=== PATIENT | female | born 1990 | race Caucasian/White ===

== ENCOUNTER 2019-12-23 16:55 | Inpatient (IN) ==
[2019-12-23] MEDS ORDERED: OXYTOCIN 30 UNITS/500 ML BAG IV PRN ×2 (17:24→17:26)
--- NOTE | 2019-12-23 17:31 | History & Physical Report ---
Date of Service December 23, 2019 Assessment & Plan (1) Spontaneous rupture of amniotic membranes: 29 yo at 39 wks with SROM at 1600, light meconium VSS Afebrile No medical problems GBS negative FHR reassuring Discussed the findings and recommended augmentation/ induction with IV pitocin which is associated with less risk of intraamniotic infection She understands and accepts, plan to have epidural for pain (2) Thin meconium stained amniotic fluid: History of Present Illness Chief Complaint: Leaking fluids Primary Care Provider: Zain García MD Patient is a 29 yo at 39 wks who felt a gush of fluid leaking at 1600, has been trickling since then Yellow tinged, no blood No ctxs/ abd pain/ fever/ chills/ N&V +FM's Her has been uncomplicated GBS negative Patient History DISCHARGE COORDINATOR History No 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 STD's Review of Systems All systems reviewed & are unremarkable except as noted in HPI & below Physical Exam Constitutional: WD/WN, vitals as above well developed and well nourished Comfortable, smiling Gastrointestinal (Abdomen): normal bowel sounds, soft, nontender, no hepatosplenomegaly (gravid, NT, Bed side US: Vertex) Genitourinary: normal external appearance OB Exam Abdomen: + vertex and + irregular contractions Manual OB Exam: + cervical dilation 1 cm, + cervical effacement 70%, + station -2 and + amniotic fluid (grossly leaking) meconium (light) and nitrazine positive OB Exam Monitor Tracing: + external uterine monitor used and + category I Results & Data Vital Signs (Past 12 Hours) Vital Signs Temp Pulse Resp BP 12/23/19 17:03 36.6 C 20 12/23/19 17:01 93 H 137/78 Code Status & VTE Plan VTE Prophylaxis Plan VTE Prophylaxis will be ordered: Yes
[2019-12-23 17:45] LABS: Hematocrit (blood only) 36.2 % (37-47); Hemoglobin 12.5 g/dL (12.0-16.0); Mean Corpuscular Hemoglobin 32.1 pg (25-34); Mean Corpuscular Volume 92.8 fL (80-100); Platelet Count 243 K/uL (130-400); RDW Coefficient of Variation 12.6 % (11.5-14.5); RDW Standard Deviation 42.6 fL (36.4-46.3); White Blood Count 10.62 K/uL (4.8-10.8)
[2019-12-23 17:48] LABS: Mean Corpuscular Hgb Conc 34.5 g/dL (32-36)
[2019-12-23 18:02] LABS: Albumin Level 2.7 gm/dl (3.4-5.0); BUN Creatinine Ratio 10.1 (10-20); Calcium 9.3 mg/dl (8.5-10.1); Creatinine Clr Calc Pharmacy 159.6 ml/min; Est GFR (African American) 139.8; Est GFR (Non-African American) 120.6; Potassium 3.4 mmol/L (3.5-5.1)
[2019-12-23 18:05] LABS: Albumin Globulin Ratio 0.6 (0.9-2); Bilirubin,Total 0.3 mg/dl (0.2-1); Globulin 4.2 gm/dl (2.5-4.0); Total Protein 6.9 gm/dl (6.4-8.2)
[2019-12-23] MEDS: LACTATED RINGER'S 1,000 ML IV PRN ×2 (18:18→21:56)
[2019-12-23] MEDS ORDERED: BUTORPHANOL TARTRATE 1 MG/ML VIAL IV ONE (19:51)
[2019-12-23] MEDS ORDERED: BUTORPHANOL TARTRATE 1 MG/ML VIAL ONE (20:02)
[2019-12-23] MEDS ORDERED: ePHEDrine sulfate 50 MG/ML AMP ONE (20:22)
[2019-12-23] MEDS ORDERED: BUPIVACAINE 0.25% 30 ML VIAL ONE (20:22)
[2019-12-23] MEDS ORDERED: fentaNYL citrate 100 MCG/2 ML VIAL ONE (20:23)
[2019-12-23] MEDS ORDERED: fentaNYL 2MCG/ML ROPIV 1.25MG/ML 100 ML BAG EPI ONE (20:23)
[2019-12-23] MEDS ORDERED: ePHEDrine sulfate 50 MG/ML AMP IV PRN (20:49)
[2019-12-23] MEDS ORDERED: NALOXONE HCL 1 MG in SODIUM CHLORIDE 0.9% 1000ML 1,000 ML IV PRN (20:49)
[2019-12-23] MEDS ORDERED: NALOXONE HCL 0.4 MG/1 ML VIAL/CARP IV PRN (20:49)
[2019-12-23] MEDS ORDERED: NALBUPHINE HCL INJ 10 MG/ML AMP IV PRN (20:49)
[2019-12-23] MEDS ORDERED: fentaNYL 2MCG/ML ROPIV 1.25MG/ML 100 ML BAG EPI PRN (20:49)
[2019-12-23] MEDS ORDERED: DiphenhydrAMINE HCL 50 MG/ML VIAL IV PRN (20:49)
[2019-12-23] MEDS ORDERED: ONDANSETRON INJ 2 MG/ML 2 ML VIAL IV PRN (20:49)
[2019-12-23] MEDS ORDERED: PROMETHAZINE HCL 6.25 MG in SODIUM CHLORIDE 0.9% 50 ML IV PRN (20:49)
--- NOTE | 2019-12-23 20:50 | Anesthesiology Consultation ---
Date of Service December 23, 2019 Assessment & Plan (1) Encounter for pre-operative examination: Chart Review Chart Review: Patient NOT seen in Pre Admission Testing and Acceptable Risk for Labor Epidural Consults Requested none ASA ASA2 Proposed Anesthesia Anesthesia Type: Labor Epidural History Height/Weight Height: 5 ft 7 in Weight: 102.512 kg Allergies Allergy/AdvReac Type Severity Reaction Status Date / Time No Known Allergies Allergy Verified 12/23/19 17:43 Medications Home Medications Medication Instructions Recorded Confirmed Last Taken PNV cmb#95-ferrous fumarate-FA 1 tab PO DAILY 12/23/19 12/23/19 12/23/19 08:00 [] Active Medications Generic Name Dose Route Start Last Admin Trade Name Freq PRN Reason Stop Dose Admin Lactated Ringer's 1,000 mls @ 150 mls/hr 12/23/19 17:24 12/23/19 20:27 Lr IV 12/25/19 17:23 999 mls/hr .Q6H40M PRN Infusion L&D Protocol Protocol Oxytocin 30 units in 500 mls @ 6 mls/hr 12/23/19 17:26 12/23/19 19:30 Pitocin IV 12/25/19 17:25 0.36 units/hr .Q24H PRN 6 mls/hr Labor Induction/Augmentation Titration Protocol 0.36 UNITS/HR NPO Date Last Intake of Fluids: 12/23/19 Time Last Intake of Fluids: 20:00 Date Last Intake of Solids: 12/23/19 Time Last Intake of Solids: 15:30 Exercise / Class Metabolic Activity II 4-5 Yardwork/Stairs/Walk up hill Past Family History Family History Grandmother (Paternal) Diabetes Father Hypertension Mother Thyroid disorder Grandmother (Maternal) Cancer Past Surgical History Surgical History [place] teeth removed 2008 Past Anesthesia History No Hx of Anesthesia Complications and No Family Hx of Anesthesia Complications History of PONV No Hx of PONV and No Hx of Motion Sickness Social History Smoking Status: Never smoker Hx Alcohol Use: No Hx Substance Use: No Physical Exam Vital Signs Last Vital Signs Temp 36.8 C 12/23/19 19:00 Pulse 65 12/23/19 21:08 Resp 20 12/23/19 19:00 BP 127/68 12/23/19 21:08 Pulse Ox 94 12/23/19 21:08 Testing Laboratory Results 12/23/19 17:31 12/23/19 17:31 Blood Type O Positive 12/23/19 17:31 Antibody Screen NEGATIVE 12/23/19 17:31
--- NOTE | 2019-12-23 21:56 | Obstetrical Progress Note ---
Date of Service December 23, 2019 Assessment & Plan Admission and Anticipated Discharge Date Admission Date: December 23, 2019 Subjective Patient is reevaluated She feels well, received epidural for pain VE: 2/ 90%/ -1, central FHR categ I Railroad: ctxs q 2-3 min, pitocin is at 8 miu/min Continue to monitor closely Results & Data ([facility]) Vital Signs (Past 12 Hours) Vital Signs Temp Pulse Resp BP Pulse Ox 12/23/19 21:54 96 H 98 12/23/19 21:52 90 97 12/23/19 21:50 87 98 12/23/19 21:48 77 96 12/23/19 21:46 73 97 12/23/19 21:45 80 125/76 12/23/19 21:44 76 95 12/23/19 21:42 85 98 12/23/19 21:40 82 100 12/23/19 21:38 87 97 12/23/19 21:36 92 H 97 12/23/19 21:34 72 100 12/23/19 21:32 70 100 12/23/19 21:30 83 18 100 12/23/19 21:29 88 126/70 12/23/19 21:28 82 132/76 98 12/23/19 21:26 77 100 12/23/19 21:25 68 129/77 12/23/19 21:24 70 98 12/23/19 21:22 77 98 12/23/19 21:20 75 20 96 12/23/19 21:18 73 124/66 95 12/23/19 21:16 71 97 12/23/19 21:15 18 12/23/19 21:14 96 12/23/19 21:12 71 127/69 98 12/23/19 21:10 79 20 129/68 94 12/23/19 21:08 65 127/68 94 12/23/19 21:07 69 118/60 12/23/19 21:05 71 20 125/92 91 12/23/19 21:03 36.4 C L 69 98 12/23/19 21:00 20 12/23/19 20:58 79 98 12/23/19 20:56 83 94 12/23/19 20:53 94 H 151/85 H 98 12/23/19 20:45 81 99 12/23/19 20:40 94 H 99 06/02/20 20:35 81 97 12/23/19 20:30 94 H 95 12/23/19 20:28 76 93 12/23/19 20:25 90 98 12/23/19 20:21 86 94 12/23/19 20:20 83 97 12/23/19 20:15 75 97 12/23/19 20:14 76 90 12/23/19 20:10 89 97 12/23/19 20:05 83 97 12/23/19 19:51 85 143/70 H 12/23/19 19:00 36.8 C 20 12/23/19 18:58 93 H 125/86 12/23/19 18:35 94 H 141/88 H 12/23/19 17:29 36.6 C 93 H 20 137/78 12/23/19 17:03 36.6 C 20 12/23/19 17:01 93 H 137/78
[2019-12-24] MEDS ORDERED: METHYLERGONOVINE MALEATE 0.2 MG/ML AMP ONE (02:43)
[2019-12-24] MEDS ORDERED: CEFAZOLIN 3000MG/72.5 ML BAG IV ONE (02:49)
[2019-12-24] MEDS ORDERED: CEFAZOLIN 2000MG 2,000 MG/15 ML SYR IV ONE (03:00)
[2019-12-24] MEDS ORDERED: bisacodyL 10 MG SUPP PR PRN (03:16)
[2019-12-24] MEDS ORDERED: MEASLES, MUMPS & RUBELLA VIRUS VIAL SQ ONE (03:16)
[2019-12-24] MEDS ORDERED: OXYTOCIN 30 UNITS/500 ML BAG IV PRN (03:16)
[2019-12-24] MEDS ORDERED: BENZOCAINE 20% AER SPR 82.5 GM CAN EXT PRN (03:16)
[2019-12-24] MEDS ORDERED: DIPHTHERIA/TETANUS/PERTUSSIS 0.5 ML SYR/VIAL IM ONE (03:16)
[2019-12-24] MEDS ORDERED: METHYLERGONOVINE MALEATE 0.2 MG/ML AMP IM ONE (03:16)
[2019-12-24] MEDS ORDERED: ACETAMINOPHEN 325 MG TAB PO PRN (03:16)
[2019-12-24] MEDS ORDERED: OXYCODONE/ACETAMINOPHEN 5mg/325mg TAB PO PRN (03:16)
[2019-12-24] MEDS ORDERED: HYDROCORTISONE ACETATE 25 MG SUPP PR PRN (03:16)
[2019-12-24] MEDS ORDERED: SUPERCREAM 0.870% 15 GM JAR EXT PRN (03:16)
[2019-12-24 03:33] LABS: Hematocrit (blood only) 33.9 % (37-47); Hemoglobin 11.6 g/dL (12.0-16.0); Mean Corpuscular Hemoglobin 31.8 pg (25-34); Mean Corpuscular Volume 92.9 fL (80-100); Mean Platelet Volume 10.7 fL (7.4-10.4); Platelet Count 212 K/uL (130-400); RDW Coefficient of Variation 12.6 % (11.5-14.5); RDW Standard Deviation 42.8 fL (36.4-46.3); Red Blood Count 3.65 M/uL (4.2-5.4); White Blood Count 17.39 K/uL (4.8-10.8)
[2019-12-24 03:36] LABS: Mean Corpuscular Hgb Conc 34.2 g/dL (32-36)
[2019-12-24 03:55] LABS: Basophils # (auto) 0.01 K/uL (0-0.2); Basophils % (auto) 0.1 %; Immature Granulocytes # (auto) 0.05 K/uL (0.00-0.02); Immature Granulocytes % (auto) 0.3 %; Lymphocytes % (auto) 8.1 %; Monocytes # (auto) 1.05 K/uL (0.11-0.59); Neutrophils # (auto) 14.88 K/uL (1.4-6.5); Neutrophils % (auto) 85.5 %
[2019-12-24 04:25] LABS: Fibrinogen 441 mg/dl (184-400); Partial Thromboplastin Ratio 0.9; Partial Thromboplastin Time 25.4 Seconds (21.0-31.0); Prothrombin Time 10.1 Seconds (9.0-12.0)
[2019-12-24] MEDS: IBUPROFEN 600 MG TAB PO PRN ×4 (05:00→19:26)
--- NOTE | 2019-12-24 06:44 | Delivery Summary ---
DATE OF OPERATION: 12/24/2019 TIME OF DELIVERY OF BABY: 02:29 a.m. DETAILS OF DELIVERY: The patient was found to be fully dilated and desired to push. She pushed for about 20 minutes and delivered the head without difficulty. Shoulders came right after the head with the same push. Baby was handed off to the mother where mouth and nose were suctioned. Cord was clamped x2 and cut at 1-minute delay and cord blood was obtained. Vagina and perineum were checked for lacerations. There was a second-degree vaginal laceration at the posterior hymen at 6 o'clock, no other lacerations were found. It was repaired with 2-0 Vicryl in a continuous locked manner and then patient was gushing blood from inside of the uterus. The placenta was delivered spontaneously as intact and complete. Uterus was explored, found to be empty, and IV oxytocin was started and uterus contracted and the bleeding decreased. Then this laceration was found to be oozing in the middle. It was repaired again with multiple [id number] sutures. It was still oozing minimal blood. It was covered with hemostatic [place] powder and then packed with a vaginal packing to be kept there for 12 hours and then a Amato catheter was inserted into the bladder to drain and the procedure was ended. Baby was a viable female infant, Apgars 8/9, weight is 3305 gr. Mom and baby are stable. At the end of the procedure, sponge, lap, needle, and instrument counts were correct x2. No complications happened. I was present during whole procedure. I signed out the patient to upcoming Dr Orellana for removal of packing in the afternoon. I attest to the content of the Intraoperative Record and any orders documented therein. Any exceptions are noted below. CHIQUID
--- NOTE | 2019-12-24 07:42 | Anesthesiology Progress Note ---
Date of Service December 24, 2019 Anesthesia Post Procedure Vital Signs Vital Signs: Temp Pulse Resp BP Pulse Ox 12/24/19 07:15 36.6 C 18 12/24/19 07:05 84 127/77 12/24/19 05:00 36.7 C 86 20 128/70 12/24/19 04:59 86 128/70 12/24/19 04:45 90 132/63 12/24/19 04:31 97 H 145/69 H 12/24/19 04:30 20 12/24/19 04:14 89 129/75 12/24/19 04:03 100 H 128/82 12/24/19 04:00 100 H 20 128/82 12/24/19 03:45 92 H 20 128/63 12/24/19 03:44 92 H 128/63 12/24/19 03:30 96 H 20 126/58 L 12/24/19 03:29 96 H 126/58 L 12/24/19 03:15 88 20 127/59 L 12/24/19 03:14 88 127/59 L 12/24/19 03:12 95 H 96 12/24/19 03:11 118 H 92 12/24/19 03:10 120 H 97 12/24/19 03:08 101 H 98 12/24/19 03:06 93 H 98 12/24/19 03:04 86 98 12/24/19 03:02 90 98 12/24/19 03:00 37.1 C 88 20 127/59 L 98 12/24/19 02:59 90 124/60 12/24/19 02:58 81 97 12/24/19 02:56 86 97 12/24/19 02:54 88 97 12/24/19 02:52 89 97 12/24/19 02:50 92 H 97 12/24/19 02:48 89 96 12/24/19 02:46 94 H 97 12/24/19 02:44 91 H 121/58 L 97 12/24/19 02:42 101 H 96 12/24/19 02:40 108 H 98 12/24/19 02:38 108 H 96 12/24/19 02:36 97 H 98 12/24/19 02:34 96 H 98 12/24/19 02:32 100 H 98 12/24/19 02:30 109 H 98 12/24/19 02:28 97 H 20 99 12/24/19 02:26 111 H 96 12/24/19 02:24 102 H 85 L 12/24/19 02:22 117 H 99 12/24/19 02:20 96 H 72 L 12/24/19 02:18 99 H 99 12/24/19 02:16 106 H 99 12/24/19 02:14 102 H 144/67 H 100 12/24/19 02:13 98 H 92 12/24/19 02:12 101 H 97 12/24/19 02:10 111 H 97 12/24/19 02:08 115 H 98 12/24/19 02:06 107 H 98 12/24/19 02:04 105 H 98 12/24/19 02:02 109 H 97 12/24/19 02:00 36.9 C 98 H 20 97 12/24/19 01:58 96 H 97 12/24/19 01:56 97 H 98 12/24/19 01:54 100 H 96 12/24/19 01:52 95 H 97 12/24/19 01:50 78 97 12/24/19 01:48 97 H 97 12/24/19 01:46 109 H 97 12/24/19 01:44 85 129/78 97 12/24/19 01:42 85 96 12/24/19 01:40 107 H 97 12/24/19 01:38 86 98 12/24/19 01:36 82 98 12/24/19 01:34 81 97 12/24/19 01:32 78 97 12/24/19 01:30 100 H 20 118/65 98 12/24/19 01:28 81 96 12/24/19 01:26 99 H 97 12/24/19 01:24 93 H 97 12/24/19 01:22 83 97 12/24/19 01:20 96 H 96 12/24/19 01:19 89 94 12/24/19 01:18 96 H 98 12/24/19 01:16 90 97 12/24/19 01:15 93 H 129/74 12/24/19 01:14 97 H 98 12/24/19 01:12 97 H 97 12/24/19 01:10 81 99 12/24/19 01:08 83 97 12/24/19 01:06 89 97 12/24/19 01:04 101 H 97 12/24/19 01:02 100 H 98 12/24/19 01:00 87 20 132/73 98 12/24/19 00:58 95 H 99 12/24/19 00:56 91 H 98 12/24/19 00:54 98 H 99 12/24/19 00:52 93 H 97 12/24/19 00:50 108 H 99 12/24/19 00:48 87 98 12/24/19 00:46 101 H 100 12/24/19 00:45 104 H 109/69 12/24/19 00:44 103 H 98 12/24/19 00:42 108 H 100 12/24/19 00:40 108 H 99 12/24/19 00:38 111 H 99 12/24/19 00:36 106 H 97 12/24/19 00:34 102 H 98 12/24/19 00:32 109 H 99 12/24/19 00:31 113 H 119/72 12/24/19 00:30 36.9 C 117 H 20 96 12/24/19 00:28 110 H 97 12/24/19 00:26 90 97 12/24/19 00:24 116 H 98 12/24/19 00:22 114 H 96 12/24/19 00:20 98 H 96 12/24/19 00:18 101 H 98 12/24/19 00:16 79 96 12/24/19 00:15 86 122/59 L 12/24/19 00:14 82 96 12/24/19 00:12 85 95 12/24/19 00:11 88 94 12/24/19 00:10 84 95 12/24/19 00:08 80 96 12/24/19 00:06 84 96 12/24/19 00:04 92 H 96 12/24/19 00:02 96 H 95 12/24/19 00:00 78 18 117/69 96 12/23/19 23:58 86 96 12/23/19 23:56 83 96 12/23/19 23:54 84 96 12/23/19 23:52 82 96 12/23/19 23:50 84 97 12/23/19 23:48 81 98 12/23/19 23:46 84 116/76 98 12/23/19 23:44 86 98 12/23/19 23:42 83 98 0602 23:40 87 98 060220 23:38 92 H 96 0602 23:36 89 98 0602 23:35 88 92 06 23:34 90 98 06 23:32 102 H 99 12/23/19 23:30 90 136/78 99 06 23:28 67 99 06 23:26 76 99 12/23/19 23:24 71 99 06 23:22 82 97 12/23/19 23:20 78 98 06 23:18 84 98 12/23/19 23:16 78 97 06 23:14 78 132/79 97 12/23/19 23:12 78 97 06 23:10 84 97 12/23/19 23:08 83 98 12/23/19 23:06 87 97 12/23/19 23:04 80 99 12/23/19 23:02 79 98 12/23/19 23:00 36.7 C 86 18 99 12/23/19 22:59 100 H 127/69 12/23/19 22:58 97 H 97 12/23/19 22:56 95 H 99 12/23/19 22:54 75 98 12/23/19 22:52 102 H 98 12/23/19 22:50 79 100 12/23/19 22:48 95 H 99 12/23/19 22:46 74 97 12/23/19 22:44 94 H 99 12/23/19 22:42 83 97 12/23/19 22:40 99 H 98 0602 22:38 89 98 0602 22:36 92 H 97 0602 22:34 78 98 060220 22:32 78 98 0602 22:30 92 H 20 97 02 22:29 86 137/67 12/23/19 22:28 80 98 0602 22:26 79 98 12/23/19 22:24 85 97 02 22:22 82 96 06 22:20 81 95 02 22:18 73 96 06 22:16 79 132/72 97 0602 22:14 77 98 12/23/19 22:12 84 97 12/23/19 22:10 84 99 12/23/19 22:08 75 99 12/23/19 22:06 81 98 12/23/19 22:04 78 100 12/23/19 22:02 81 99 12/23/19 22:00 99 H 20 99 12/23/19 21:59 90 128/90 12/23/19 21:58 95 H 99 12/23/19 21:56 96 H 97 12/23/19 21:54 96 H 98 12/23/19 21:52 90 97 12/23/19 21:50 87 98 12/23/19 21:48 77 96 12/23/19 21:46 73 97 12/23/19 21:45 80 125/76 12/23/19 21:44 76 95 12/23/19 21:42 85 98 12/23/19 21:40 82 100 12/23/19 21:38 87 97 12/23/19 21:36 92 H 97 12/23/19 21:34 72 100 12/23/19 21:32 70 100 12/23/19 21:30 83 18 100 12/23/19 21:29 88 126/70 12/23/19 21:28 82 132/76 98 12/23/19 21:26 77 100 12/23/19 21:25 68 129/77 12/23/19 21:24 70 98 12/23/19 21:22 77 98 12/23/19 21:20 75 20 96 12/23/19 21:18 73 124/66 95 12/23/19 21:16 71 97 12/23/19 21:15 18 12/23/19 21:14 96 12/23/19 21:12 71 127/69 98 12/23/19 21:10 79 20 129/68 94 12/23/19 21:08 65 127/68 94 12/23/19 21:07 69 118/60 12/23/19 21:05 71 20 125/92 91 12/23/19 21:03 36.4 C L 69 98 12/23/19 21:00 20 12/23/19 20:58 79 98 12/23/19 20:56 83 94 12/23/19 20:53 94 H 151/85 H 98 06/02/20 20:45 81 99 12/23/19 20:40 94 H 99 12/23/19 20:35 81 97 12/23/19 20:30 94 H 95 12/23/19 20:28 76 93 12/23/19 20:25 90 98 12/23/19 20:21 86 94 12/23/19 20:20 83 97 12/23/19 20:15 75 97 12/23/19 20:14 76 90 12/23/19 20:10 89 97 12/23/19 20:05 83 97 12/23/19 19:51 85 143/70 H 12/23/19 19:00 36.8 C 20 12/23/19 18:58 93 H 125/86 12/23/19 18:35 94 H 141/88 H 12/23/19 17:29 36.6 C 93 H 20 137/78 12/23/19 17:03 36.6 C 20 12/23/19 17:01 93 H 137/78 Pain Intensity Bilateral Abdomen: Pain Intensity: 0 Lower Back: Pain Intensity: 1 Notes Mental Status: alert / awake / arousable and participated in evaluation Nausea / Vomiting: adequately controlled Pain: adequately controlled Airway Patency, RR, SpO2: stable & adequate BP & HR: stable & adequate Hydration State: stable & adequate Neuraxial Anesthesia: was administered and sensory block is resolving Anesthetic Complications: no major complications apparent and Pt Satisfied with anesthetic care Notes: Epidural site clean, dry and intact. No signs of edema, erythema or bruising at insertion site. Pt instructed to request anesthesia if she has residual lower extremity numbness or if she develops lower extremity pain or weakness, back pain or headache.
[2019-12-24] MEDS: DOCUSATE SODIUM 100 MG CAP PO SCH ×2 (08:45→20:14)
[2019-12-24] MEDS: PRENATAL VITAMIN 1 TAB PO SCH (08:45)
[2019-12-24] MEDS: FERROUS SULFATE 325 MG TAB PO SCH (08:45)
[2019-12-25 06:52] LABS: Hematocrit (blood only) 30.3 % (37-47); Mean Corpuscular Hemoglobin 31.3 pg (25-34); Mean Corpuscular Volume 94.7 fL (80-100); Mean Platelet Volume 10.7 fL (7.4-10.4); Platelet Count 230 K/uL (130-400); RDW Coefficient of Variation 12.7 % (11.5-14.5); RDW Standard Deviation 43.6 fL (36.4-46.3); White Blood Count 13.86 K/uL (4.8-10.8)
--- NOTE | 2019-12-25 08:13 | Obstetrical Progress Note ---
Date of Service December 25, 2019 Assessment & Plan (1) Normal course: PPD #1 Pt doing well Anticipate disch tomorrow Subjective Ambulation: ambulating normally Voiding: no voiding problems Passing Gas:: Yes Diet Tolerance:: regular diet Lochia:: Small Feeding Type:: breast feeding Review of Systems All systems reviewed & are unremarkable except as noted in HPI & below Physical Exam Constitutional WD/WN, vitals as above well developed and well nourished Eyes PERRL, conjunctivae normal, anicteric sclerae Neck trachea midline, no thyromegaly Respiratory normal respiratory effort, lungs clear to auscultation Auscultation: no crackles, no rales and no wheezes Cardiovascular RRR, no murmur, no edema Gastrointestinal (Abdomen) normal bowel sounds, soft, nontender, no hepatosplenomegaly Uterus is below umbilicus Musculoskeletal no cyanosis or clubbing, extremities motor strength 5/5 Skin no rashes, warm and dry Neurologic patellar DTR's 2+ bilat, sensation intact Psychiatric A+Ox3, euthymic affect Genitourinary normal external appearance Results & Data Vital Signs (Past 12 Hours) Vital Signs Temp Pulse Resp BP 12/24/19 23:10 36.5 C 98 H 16 118/70
[2019-12-25] MEDS: IBUPROFEN 600 MG TAB PO PRN ×3 (08:57→21:51)
[2019-12-25] MEDS: FERROUS SULFATE 325 MG TAB PO SCH (08:57)
[2019-12-25] MEDS: DOCUSATE SODIUM 100 MG CAP PO SCH ×2 (08:57→21:41)
[2019-12-25] MEDS: PRENATAL VITAMIN 1 TAB PO SCH (08:57)
[2019-12-25] MEDS ORDERED: bisacodyL 5 MG TABEC PO SCH (20:00)
[2019-12-26 06:08] LABS: Hematocrit (blood only) 29.2 % (37-47); Hemoglobin 9.8 g/dL (12.0-16.0)
[2019-12-26] MEDS: FERROUS SULFATE 325 MG TAB PO SCH (10:18)
[2019-12-26] MEDS: PRENATAL VITAMIN 1 TAB PO SCH (10:18)
[2019-12-26] MEDS: DOCUSATE SODIUM 100 MG CAP PO SCH (10:18)
--- NOTE | 2019-12-26 10:22 | Obstetrical Progress Note ---
Date of Service December 26, 2019 Assessment & Plan Admission and Anticipated Discharge Date Admission Date: December 23, 2019 Subjective Patient is seen and examined. She feels well, no complaints. Ambulating without dizziness Voiding without difficulty Tolerating regular diet with out N&V Bleeding is minimal No fever/ chills/ CP/ SOB/ N&V/ Leg pain Breast feeding without problems Vital Signs Temp Pulse Resp BP Pulse Ox 12/25/19 23:40 36.6 C 113 H 18 141/79 H 12/25/19 17:30 36.8 C 100 H 18 114/73 98 Lab Results 12/23/19 12/23/19 12/23/19 Range/Units 17:31 17:31 17:31 WBC 10.62 (4.8-10.8) K/uL RBC 3.90 L (4.2-5.4) M/uL Hgb 12.5 (12.0-16.0) g/dL Hct 36.2 L (37-47) % MCV 92.8 (80-100) fL MCH 32.1 (25-34) pg MCHC 34.5 (32-36) g/dL RDW Std Deviation 42.6 (36.4-46.3) fL RDW Coeff of Sadia 12.6 (11.5-14.5) % Plt Count 243 (130-400) K/uL MPV 11.0 H (7.4-10.4) fL Immature Gran % (Auto) % Neut % (Auto) % Lymph % (Auto) % Gosper % (Auto) % Eos % (Auto) % Baso % (Auto) % Immature Gran # (Auto) (0.00-0.02) K/uL Neut # (Auto) (1.4-6.5) K/uL Lymph # (Auto) (1.2-3.4) K/uL Gosper # (Auto) (0.11-0.59) K/uL Eos # (Auto) (0-0.5) K/uL Baso # (Auto) (0-0.2) K/uL PT (9.0-12.0) Seconds INR (0.9-1.1) APTT (21.0-31.0) Seconds PTT Ratio Fibrinogen (184-400) mg/dl Sodium 139 (136-145) mmol/L Potassium 3.4 L (3.5-5.1) mmol/L Chloride 110 H (98-107) mmol/L Carbon Dioxide 19 L (21-32) mmol/L Anion Gap 10.0 (3-11) BUN 7 (7-18) mg/dl Creatinine 0.64 (0.6-1.2) mg/dl Est Cr Clr Drug Dosing 159.6 ml/min Est GFR ( Amer) 139.8 Est GFR (Non-Af Amer) 120.6 BUN/Creatinine Ratio 10.1 (10-20) Glucose 94 (70-99) mg/dl Calcium 9.3 (8.5-10.1) mg/dl Total Bilirubin 0.3 (0.2-1) mg/dl AST 13 L (15-37) U/L ALT 19 (12-78) U/L Alkaline Phosphatase 105 (45-117) U/L Total Protein 6.9 (6.4-8.2) gm/dl Albumin 2.7 L (3.4-5.0) gm/dl Globulin 4.2 H (2.5-4.0) gm/dl Albumin/Globulin Ratio 0.6 L (0.9-2) Blood Type O Positive Antibody Screen NEGATIVE 12/24/19 12/24/19 12/25/19 Range/Units 03:22 03:22 06:27 WBC 17.39 H 13.86 H (4.8-10.8) K/uL RBC 3.65 L 3.20 L (4.2-5.4) M/uL Hgb 11.6 L 10.0 L (12.0-16.0) g/dL Hct 33.9 L 30.3 L (37-47) % MCV 92.9 94.7 (80-100) fL MCH 31.8 31.3 (25-34) pg MCHC 34.2 33.0 (32-36) g/dL RDW Std Deviation 42.8 43.6 (36.4-46.3) fL RDW Coeff of Sadia 12.6 12.7 (11.5-14.5) % Plt Count 212 230 (130-400) K/uL MPV 10.7 H 10.7 H (7.4-10.4) fL Immature Gran % (Auto) 0.3 % Neut % (Auto) 85.5 % Lymph % (Auto) 8.1 % Gosper % (Auto) 6.0 % Eos % (Auto) 0.0 % Baso % (Auto) 0.1 % Immature Gran # (Auto) 0.05 H (0.00-0.02) K/uL Neut # (Auto) 14.88 H (1.4-6.5) K/uL Lymph # (Auto) 1.40 (1.2-3.4) K/uL Gosper # (Auto) 1.05 H (0.11-0.59) K/uL Eos # (Auto) 0.00 (0-0.5) K/uL Baso # (Auto) 0.01 (0-0.2) K/uL PT 10.1 (9.0-12.0) Seconds INR 1.0 (0.9-1.1) APTT 25.4 (21.0-31.0) Seconds PTT Ratio 0.9 Fibrinogen 441 H (184-400) mg/dl Sodium (136-145) mmol/L Potassium (3.5-5.1) mmol/L Chloride (98-107) mmol/L Carbon Dioxide (21-32) mmol/L Anion Gap (3-11) BUN (7-18) mg/dl Creatinine (0.6-1.2) mg/dl Est Cr Clr Drug Dosing ml/min Est GFR ( Amer) Est GFR (Non-Af Amer) BUN/Creatinine Ratio (10-20) Glucose (70-99) mg/dl Calcium (8.5-10.1) mg/dl Total Bilirubin (0.2-1) mg/dl AST (15-37) U/L ALT (12-78) U/L Alkaline Phosphatase (45-117) U/L Total Protein (6.4-8.2) gm/dl Albumin (3.4-5.0) gm/dl Globulin (2.5-4.0) gm/dl Albumin/Globulin Ratio (0.9-2) Blood Type Antibody Screen 12/26/19 Range/Units 05:53 WBC (4.8-10.8) K/uL RBC (4.2-5.4) M/uL Hgb 9.8 L (12.0-16.0) g/dL Hct 29.2 L (37-47) % MCV (80-100) fL MCH (25-34) pg MCHC (32-36) g/dL RDW Std Deviation (36.4-46.3) fL RDW Coeff of Sadia (11.5-14.5) % Plt Count (130-400) K/uL MPV (7.4-10.4) fL Immature Gran % (Auto) % Neut % (Auto) % Lymph % (Auto) % Gosper % (Auto) % Eos % (Auto) % Baso % (Auto) % Immature Gran # (Auto) (0.00-0.02) K/uL Neut # (Auto) (1.4-6.5) K/uL Lymph # (Auto) (1.2-3.4) K/uL Gosper # (Auto) (0.11-0.59) K/uL Eos # (Auto) (0-0.5) K/uL Baso # (Auto) (0-0.2) K/uL PT (9.0-12.0) Seconds INR (0.9-1.1) APTT (21.0-31.0) Seconds PTT Ratio Fibrinogen (184-400) mg/dl Sodium (136-145) mmol/L Potassium (3.5-5.1) mmol/L Chloride (98-107) mmol/L Carbon Dioxide (21-32) mmol/L Anion Gap (3-11) BUN (7-18) mg/dl Creatinine (0.6-1.2) mg/dl Est Cr Clr Drug Dosing ml/min Est GFR ( Amer) Est GFR (Non-Af Amer) BUN/Creatinine Ratio (10-20) Glucose (70-99) mg/dl Calcium (8.5-10.1) mg/dl Total Bilirubin (0.2-1) mg/dl AST (15-37) U/L ALT (12-78) U/L Alkaline Phosphatase (45-117) U/L Total Protein (6.4-8.2) gm/dl Albumin (3.4-5.0) gm/dl Globulin (2.5-4.0) gm/dl Albumin/Globulin Ratio (0.9-2) Blood Type Antibody Screen PE: General: Alert, orientedx3, NAD Abd: soft, NT, fundus firm, below Umbilicus Perineum intact, Lochia rubra minimal Ext; NT, no edema AP: 29 yo s/p , ppd# 2 VSS Afebrile doing well Continue routine care All questions were answered D/C home , f/u in office Results & Data ([facility]) Vital Signs (Past 12 Hours) Vital Signs Temp Pulse Resp BP 12/25/19 23:40 36.6 C 113 H 18 141/79 H
== END 2019-12-26 14:15 | disposition home or self-care (01) | DRG 807 ==
LOC: OPB 16:55 → 4S1 17:00 → 4S2 12-24 16:24

== ENCOUNTER 2023-03-22 09:40 | Inpatient (IN) ==
[2023-03-22] MEDS ORDERED: OXYTOCIN 30 UNITS/500 ML BAG IV PRN ×2 (11:16→14:55)
[2023-03-22] MEDS ORDERED: LIDOCAINE 1% LOCAL 20 ML VIAL INFIL PRN (11:16)
[2023-03-22] MEDS ORDERED: LACTATED RINGER'S 1,000 ML IV PRN (11:16)
--- NOTE | 2023-03-22 11:16 | Obstetrical Progress Note ---
Date of Service March 22, 2023 Assessment & Plan (1) PROM (premature rupture of membranes): Plan: 32yo at 40 weeks present with SROM at 03;00 SPE: gross pooling, blood tinged 2cm/50/post FHR; CAT1 Ctx 3-4min Bedside sono; VT Plan Admit and anticipate VD Results & Data Vital Signs (Past 12 Hours) Vital Signs Temp Pulse Resp BP 03/22/23 10:01 90 124/69 03/22/23 09:54 37.0 C 18
[2023-03-22 12:16] LABS: Hematocrit (blood only) 35.1 % (37.0-47.0); Hemoglobin 12.2 g/dl (12.0-16.0); Mean Corpuscular Hgb Conc 34.8 g/dL (32.0-36.0); Mean Corpuscular Volume 92.1 fL (80.0-100.0); Platelet Count 243 K/uL (130-400); RDW Coefficient of Variation 12.2 % (11.5-14.5); Red Blood Count 3.81 M/uL (4.20-5.40); White Blood Count 11.07 K/ul (4.8-10.8)
[2023-03-22] MEDS ORDERED: fentaNYL citrate PF 100 MCG/2 ML VIAL ONE (13:08)
[2023-03-22] MEDS ORDERED: ePHEDrine sulfate 50 MG/ML AMP ONE (13:08)
[2023-03-22] MEDS ORDERED: LIDOCAINE 2%/EPINEPHRINE 1:200,000 20 ML PF ONE (13:08)
[2023-03-22] MEDS ORDERED: BUPIVACAINE 0.25% PF 30 ML VIAL ONE (13:08)
[2023-03-22] MEDS ORDERED: SODIUM CHLORIDE 0.9% PF INJ 10 ML VIAL ONE (13:08)
[2023-03-22] MEDS ORDERED: fentaNYL 2MCG/ML ROPIVACAINE 1.25MG/ML 100 ML BAG EPI ONE (13:09)
[2023-03-22] MEDS ORDERED: fentaNYL citrate PF 100 MCG/2 ML VIAL EPI PRN (13:18)
[2023-03-22] MEDS ORDERED: NALOXONE HCL 1 MG in SODIUM CHLORIDE 0.9% 1,000 ML IV PRN (13:18)
[2023-03-22] MEDS ORDERED: LIDOCAINE 2%/EPINEPHRINE 1:200,000 20 ML PF EPI STA (13:18)
[2023-03-22] MEDS ORDERED: fentaNYL 2MCG/ML ROPIVACAINE 1.25MG/ML 100 ML BAG EPI PRN (13:18)
[2023-03-22] MEDS ORDERED: ePHEDrine sulfate 50 MG/ML AMP IV PRN (13:18)
[2023-03-22] MEDS ORDERED: ROPIVACAINE 0.5% PF 5 MG/ML 20 ML VIAL EPI PRN (13:18)
[2023-03-22] MEDS ORDERED: BUPIVACAINE 0.25% PF 30 ML VIAL EPI STA (13:18)
[2023-03-22] MEDS ORDERED: NALBUPHINE HCL INJ 10 MG/ML AMP IV PRN (13:18)
[2023-03-22] MEDS ORDERED: BUPIVACAINE 0.25% PF 30 ML VIAL EPI PRN (13:18)
[2023-03-22] MEDS ORDERED: diphenhydrAMINE 50 MG/ML VIAL IV PRN (13:18)
[2023-03-22] MEDS ORDERED: SODIUM CHLORIDE 0.9% PF INJ 10 ML VIAL EPI PRN (13:18)
[2023-03-22] MEDS ORDERED: NALOXONE HCL 0.4 MG/1 ML VIAL/CARP IV PRN (13:18)
[2023-03-22] MEDS ORDERED: SODIUM CHLORIDE 0.9% PF INJ 10 ML VIAL EPI STA (13:18)
[2023-03-22] MEDS ORDERED: LIDOCAINE 2% MPF LOCAL 5 ML VIAL EPI PRN (13:18)
[2023-03-22] MEDS ORDERED: fentaNYL citrate PF 100 MCG/2 ML VIAL EPI STA (13:18)
--- NOTE | 2023-03-22 13:18 | Anesthesiology Consultation ---
Date of Service March 22, 2023 Assessment & Plan Chart Review Chart Review: Patient NOT seen in Pre Admission Testing and Acceptable Risk for Labor Epidural Consults Requested none History Height/Weight Height: 5 ft 7 in Weight: 102.512 kg Allergies Allergy/AdvReac Type Severity Reaction Status Date / Time No Known Allergies Allergy Verified 03/22/23 11:46 Medications Home Medications Medication Instructions Recorded Confirmed Last Taken vit no.95-ferrous 1 tab PO DAILY 12/23/19 03/22/23 12/23/19 08:00 fumarate 28 mg-folic acid 800 mcg tablet () cetirizine 10 mg tablet (Zyrtec) 10 mg PO DAILY PRN Allergic 03/22/23 03/22/23 Unknown Symptoms Active Medications Generic Name Dose Route Start Last Admin Trade Name Freq PRN Reason Stop Dose Admin Lactated Ringer's 1,000 mls @ 125 mls/hr 03/22/23 11:16 03/22/23 13:03 Lr IV 03/24/23 11:15 999 mls/hr .Q8H PRN Administration L&D Protocol Protocol Past Family History Family History Grandmother (Paternal) Diabetes Father Hypertension Mother Thyroid disorder Grandmother (Maternal) Cancer Past Surgical History Surgical History [place] teeth removed 2008 Social History Smoking Status: Never smoker Hx Alcohol Use: No Hx Substance Use: No substance use type: does not use Physical Exam Vital Signs Last Vital Signs Temp 36.7 C 03/22/23 11:30 Pulse 93 H 03/22/23 11:30 Resp 18 03/22/23 11:30 BP 132/78 03/22/23 11:30 Testing Laboratory Results 03/22/23 11:49 Blood Type O Positive 03/22/23 11:49 Antibody Screen NEGATIVE 03/22/23 11:49
[2023-03-22] MEDS ORDERED: BENZOCAINE 20% SPRY 85 APPLN/85 GM CAN EXT PRN (14:55)
[2023-03-22] MEDS ORDERED: DIPHTHERIA/TETANUS/PERTUSSIS Vaccine (Tdap, Age 7+yrs) 0.5mL SYR/VL IM ONE (14:55)
[2023-03-22] MEDS ORDERED: HYDROCORTISONE ACETATE 25 MG SUPP PR PRN (14:55)
[2023-03-22] MEDS ORDERED: bisacodyL 10 MG SUPP PR PRN (14:55)
--- NOTE | 2023-03-22 15:02 | Delivery Summary ---
Vaginal Delivery Summary Date of Service March 22, 2023 Vaginal Delivery Summary DELIVERY NOTE Patient delivered a live male in left occiput anterior presentation there was no nuchal cord which was easily reduced. Infant was delivered and placed on mother's abdomen. Delayed cord clamping was performed. Cord blood is obtained Cord gasses are not obtained Meconium is present Placenta is spontaneously delivered. Placenta appears grossly normal and has 3 vessel cord Inspection of the perineum showed a second-degree midline laceration. Laceration is repaired in layers with 2-0 Vicryl in layers Rectal exam post repair showed good sphincter tone no sutures palpated in the r ectum. Estimated blood loss is 450 cc per Infants weight and scores are in the pediatric record Mother and baby are stable in in the recovery
--- NOTE | 2023-03-22 15:12 | Anesthesia Procedure Note ---
Date of Service March 22, 2023 Anesthesia Post Epidural Note Vital Signs Vital Signs: Temp Pulse Resp BP Pulse Ox 36.6 C 88 20 124/77 98 03/22/23 13:45 03/22/23 14:54 03/22/23 13:45 03/22/23 15:07 03/22/23 14:49 Pain Intensity Lower Abdomen: Pain Intensity: 6 Notes Mental Status: alert / awake / arousable and participated in evaluation Nausea / Vomiting: adequately controlled Pain: adequately controlled Airway Patency, RR, SpO2: stable & adequate BP & HR: stable & adequate Hydration State: stable & adequate Neuraxial Anesthesia: was administered and sensory block is resolving Anesthetic Complications: no major complications apparent and Pt Satisfied with anesthetic care Epidural: Removed without complications and With tip intact
[2023-03-22] MEDS: IBUPROFEN 600 MG TAB PO PRN ×2 (16:26→20:38)
[2023-03-22] MEDS: ACETAMINOPHEN 325 MG TAB PO PRN (19:35)
[2023-03-22] MEDS: DOCUSATE SODIUM 100 MG CAP PO SCH (20:38)
[2023-03-23] MEDS: ACETAMINOPHEN 325 MG TAB PO PRN (01:54)
[2023-03-23] MEDS: IBUPROFEN 600 MG TAB PO PRN ×3 (01:54→10:37)
[2023-03-23 06:34] LABS: Hematocrit (blood only) 32.5 % (37.0-47.0); Hemoglobin 11.4 g/dl (12.0-16.0); Mean Corpuscular Hemoglobin 32.5 pg (25.0-34.0); Mean Corpuscular Hgb Conc 35.1 g/dL (32.0-36.0); Mean Corpuscular Volume 92.6 fL (80.0-100.0); Platelet Count 228 K/uL (130-400); RDW Coefficient of Variation 12.2 % (11.5-14.5); RDW Standard Deviation 40.8 fL (36.4-46.3); Red Blood Count 3.51 M/uL (4.20-5.40); White Blood Count 14.51 K/ul (4.8-10.8)
[2023-03-23] MEDS ORDERED: PRENATAL VITAMIN 1 TAB PO SCH (08:00)
[2023-03-23] MEDS: DOCUSATE SODIUM 100 MG CAP PO SCH (08:57)
--- NOTE | 2023-03-23 09:33 | Obstetrical Progress Note ---
Date of Service March 23, 2023 Assessment & Plan Admission and Anticipated Discharge Date Admission Date: March 22, 2023 Subjective Patient is seen and examined. She feels well, no complaints. Ambulating without dizziness Voiding without difficulty Tolerating regular diet with out N&V Bleeding is minimal No fever/ chills/ CP/ SOB/ N&V/ Leg pain Breast feeding without problems Vital Signs Temp Pulse Resp BP Pulse Ox O2 Del Method 03/23/23 07:40 36.7 C 77 20 127/81 96 Room Air 03/23/23 03:07 36.7 C 77 16 103/66 96 Room Air 03/22/23 23:12 36.7 C 85 18 122/73 95 Room Air Lab Results 03/22/23 03/22/23 03/23/23 Range/Units 11:49 11:49 06:00 WBC 11.07 H 14.51 H (4.8-10.8) K/ul RBC 3.81 L 3.51 L (4.20-5.40) M/uL Hgb 12.2 11.4 L (12.0-16.0) g/dl Hct 35.1 L 32.5 L (37.0-47.0) % MCV 92.1 92.6 (80.0-100.0) fL MCH 32.0 32.5 (25.0-34.0) pg MCHC 34.8 35.1 (32.0-36.0) g/dL RDW Std Deviation 41.0 40.8 (36.4-46.3) fL RDW Coeff of Sadia 12.2 12.2 (11.5-14.5) % Plt Count 243 228 (130-400) K/uL MPV 11.0 11.0 (9.4-12.4) fL Blood Type O Positive Antibody Screen NEGATIVE PE: General: Alert, orientedx3, NAD Abd: soft, NT, fundus firm, below Umbilicus Perineum intact, Lochia rubra minimal Ext; NT, no edema AP: 32 yo s/p , ppd# 1 VSS Afebrile doing well Continue routine care All questions were answered Desires d/c home. D/C home, f/u in office. Results & Data Vital Signs (Past 12 Hours) Vital Signs Temp Pulse Resp BP Pulse Ox O2 Del Method 03/23/23 07:40 36.7 C 77 20 127/81 96 Room Air 03/23/23 03:07 36.7 C 77 16 103/66 96 Room Air 03/22/23 23:12 36.7 C 85 18 122/73 95 Room Air
[2023-03-23] MEDS ORDERED: bisacodyL 5 MG TABEC PO SCH (20:00)
== END 2023-03-23 17:39 | disposition home or self-care (01) | DRG 807 ==
LOC: OPB 09:40 → 4S1 09:42 → 4E2 17:33